=== PATIENT | female | born 1995 | race Hispanic/Latino ===

== ENCOUNTER → 2017-02-22 | Outpatient (CLI) | payer OTHER ==
--- NOTE | 2017-02-22 16:48 | REP ---
Digital diagnostic unilateral right breast mammography and focused right breast sonography: History: 21-year-old with an bloody and purulent discharge in the right nipple intermittently. Mammographic findings: CC true MLO and MLO views of the right breast were obtained. There is mild scattered fibroglandular tissue noted throughout the subareolar region of the right breast extending in the upper outer quadrant. No mass lesion is seen. No nodule is observed. No focal skin thickening is seen. No architectural distortion is seen. Sonographic findings: Focused right breast retroareolar sonography is performed. There are a few slightly prominent retroareolar ducts. No abscess, cyst, mass or acoustic shadowing is seen. Impression: BIRADS category 2 benign right breast imaging. Clinical follow-up is advised. Signed by Mark Abraham MD 02/22/2017 05:00 P
== END ==
LOC: M RAD 02-17 12:21
PROVIDERS: ATTEND Internal Medicine
DX: N64.52 Nipple discharge (principal)
CPT/HCPCS: 76642; G0206

== ENCOUNTER 2017-05-05 20:55 | Emergency (ER) | payer OTHER ==
[~2017-05-05] VITALS: Ht 154.9 cm; Wt 100.0 kg
[2017-05-05] MEDS ORDERED: METF500T13 PO (21:10)
[2017-05-05] MEDS ORDERED: NAPR500T3 PO (21:10)
[2017-05-05] MEDS ORDERED: NS 1,000 ML IV SCH (21:52)
[2017-05-05] MEDS ORDERED: MORPHINE 4 MG/ML 1ML SYRINGE IV ONE (22:00)
[2017-05-05 22:25] LABS: BASO % 0.4 % (0.0-1.0); EOS # 0.4 10^3/uL (0.0-0.50); EOS % 4.3 % (0.0-3.0); IMMATURE GRANULOCYTE % 0.2 % (0-0); LYMPH # 4.2 10^3/uL (1.5-6.5); LYMPH % 43.1 % (24.0-44.0); MEAN CORPUSCULAR HEMOGLOBIN 30.1 pg (27.0-33.0); MEAN CORPUSCULAR HGB CONC 33.6 g/dl (32.0-36.5); MEAN CORPUSCULAR VOLUME 89.6 fl (80.0-96.0); MONO # 0.6 10^3/uL (0.0-0.8); MONO % 5.9 % (0.0-5.0); NEUTROPHILS # 4.5 10^3/uL (1.8-7.7); NEUTROPHILS % 46.1 % (36.0-66.0); PLATELET COUNT, AUTOMATED 329 10^3/uL (150-450); RED CELL DISTRIBUTION WIDTH 13.1 % (11.5-14.5); WHITE BLOOD COUNT 9.7 10^3/uL (4.0-10.0)
[2017-05-05 22:38] LABS: CONTROL LINE HCG INT CTR LINE PRESENT
[2017-05-05 22:47] LABS: ANION GAP 6 MEQ/L (8-16); BLOOD UREA NITROGEN 10 MG/DL (7-18); CALCIUM LEVEL 8.5 MG/DL (8.5-10.1); CARBON DIOXIDE LEVEL 25 MEQ/L (21-32); CHLORIDE LEVEL 107 MEQ/L (98-107); CREATININE FOR GFR 0.67 MG/DL (0.55-1.02); GLOMERULAR FILTRATION RATE > 60.0 (>60); GLUCOSE, FASTING 125 MG/DL (70-105); POTASSIUM SERUM 4.6 MEQ/L (3.5-5.1); SODIUM LEVEL 138 MEQ/L (136-145)
[2017-05-05] MEDS ORDERED: ISOVUE-370 76% 100ML VIAL (Q9967) As Ordered ONE (23:03)
--- NOTE | 2017-05-05 23:40 | REPUSA ---
HISTORY: TRAUMA. TECHNIQUE: Axial CT imaging of thoracic spine with coronal and sagittal reformatted imaging, without contrast. DLP= 1273.8 mGy-cm. This scan was performed using automatic exposure control (radiation do se reduction software) to obtain a diagnostic image quality scan with patient dose as low as reasonab ly achievable.. FINDINGS: There is no evidence of fracture, destructive bony lesion, or instability seen in the thora cic spine. There is no evidence of thoracic canal spinal stenosis or soft tissue mass lesions seen i n the thoracic spinal canal on the noncontrast examination. There is mild degenerative change with v acuum phenomenon and spondylosis at the T10/T11 disc. The remaining disc space areas and posterior e lements are normal. IMPRESSION: Focal degenerative spondylosis at the T10/T11 disc; otherwise, negative CT examination of thoracic spine with no acute pathology seen.
--- NOTE | 2017-05-05 23:50 | REPUSA ---
HISTORY: TRAUMA. TECHNIQUE: Axial CT imaging of chest with sagittal and coronal reformatted imaging, with intravenous contrast enhancement. DLP= 1212 mGy-cm. This scan was performed using automatic exposure control ([employer] dose reduction software) to obtain a diagnostic image quality scan with patient dose as low a s reasonably achievable. FINDINGS: Thoracic aorta is normal with no evidence of rupture, aneurysm, or thoracic aortic dissecti on. No mediastinal hemorrhage or apical cap hemorrhage is seen. Pulmonary arteries are normal with no evidence of pulmonary emboli. No mediastinal mass lesions are seen. Lung windows demonstrate clear lungs with no pulmonary mass lesions, pneumothorax, consolidation, or pleural effusions. Bone windows demonstrate no fractures or destructive bony lesions in the thorax. IMPRESSION: Negative CT examination of chest.
--- NOTE | 2017-05-05 23:50 | REPUSA ---
HISTORY: TRAUMA. TECHNIQUE: Axial CT imaging of lumbosacral spine with sagittal and coronal reformatted imaging, witho ut contrast. DLP= 1273.8 mGy-cm. This scan was performed using automatic exposure control (radiation dose reduction software) to obtain a diagnostic image quality scan with patient dose as low as reaso nably achievable. FINDINGS: There is no evidence of fracture, destructive bony lesion, or instability. Soft tissues are normal with no paraspinal soft tissue mass lesions. There is no detectable soft tis abdullahi mass seen in the lumbosacral spinal canal. Disc space areas and posterior elements are normal. IMPRESSION: Negative noncontrast CT examination of lumbosacral spine.
[2017-05-05] MEDS ORDERED: PERC5TAB12 PO (23:56)
--- NOTE | 2017-05-06 | REPUSA ---
HISTORY: Trauma. TECHNIQUE: Axial CT imaging of abdomen and pelvis with intravenous contrast enhancement and sagittal and coronal reformatted imaging. DLP= 1212 mGy-cm. This scan was performed using automatic exposure c ontrol (radiation dose reduction software) to obtain a diagnostic image quality scan with patient dos e as low as reasonably achievable. FINDINGS: Lung bases are clear. No bony fracture or destructive bony lesion is seen in the lower thor ax, abdomen, and pelvis. Liver, biliary tree, gallbladder, pancreas, and spleen are normal. Adrenal glands are normal. Right and left kidneys are normal with no evidence of mass lesion, obstruc tion, or nephrolithiasis seen. Ureters and urinary bladder are normal. There is no evidence of abdomi nal aortic aneurysm. No retroperitoneal mass lesion or hemorrhage is seen. No pelvic mass lesion or abnormal fluid collections are seen in the abdomen and pelvis. There is no e vidence of bowel wall mass lesion, obstruction, perforation, inflammatory reaction, or evidence of di verticulitis. Appendix is visualized and normal. No abdominal wall hernia is seen. IMPRESSION: Negative CT of abdomen and pelvis.
[2017-05-06 00:17] VITALS: BP 110/57
--- NOTE | 2017-05-06 19:58 | ECGEPIP ---
Stationary ECG Study [facility] - ED Test Date: 2017-05-05 Pat Name: COLBY GALLARDO Department: Room: - Gender: F Beef Trimmer: krista : 1995 Requested By: VINCENT Pinto Order Number: [id number] Reading MD: David Reyes Measurements Intervals [place] Rate: 68 P: 17 MA: 136 QRS: 49 QRSD: 93 T: 17 QT: 382 QTc: 406 Interpretive Statements SINUS RHYTHM WITH SINUS ARRHYTHMIA POSSIBLE PRIOR INFERIOR INFARCT BENIGN EARLY REPOLARIZATION NO PRIORS FOR COMPARISON Electronically Signed On 05-06-2017 19:57:58 EST by David Reyes
== END 2017-05-06 00:32 | disposition home or self-care (01) ==
LOC: M ED 20:55
DX: S29.012A Strain of muscle and tendon of back wall of thorax, initial encounter (principal); X58.XXXA Exposure to other specified factors, initial encounter; Y92.89 Other specified places as the place of occurrence of the external cause; Y93.89 Activity, other specified; Y99.8 Other external cause status; M47.894 Other spondylosis, thoracic region
CPT/HCPCS: 71260; 72128; 72131; 74177; 80048; 82550; 82553; 84703; 85025; 93005; 96374; 99284; Q9967